=== PATIENT | female | born 1980 | race Caucasian/White ===

== ENCOUNTER 2019-02-20 21:35 | Emergency (ER) | payer MEDICAID ==
[~2019-02-20] VITALS: Ht 154.9 cm; Wt 75.0 kg
[2019-02-20] MEDS ORDERED: LORAZEPAM 1MG TABLET PO ONE (22:45)
[2019-02-20 23:09] LABS: BASOPHILS % 0.6 % (0.0-2.0); HEMATOCRIT. 38.4 % (36.0-48.0); HEMOGLOBIN. 12.6 g/dL (12.0-16.0); LYMPHOCYTES % 22.1 % (20.0-50.0); MEAN CORPUSCULAR VOLUME 85.7 fL (81.0-99.0); MEAN PLATELET VOLUME 7.8 fl (7.4-10.4); MONOCYTES % 5.9 % (2.0-8.0); NEUTROPHILS % 69.4 % (40.0-76.0); PLATELET 425 x1000/uL (130-400); RED BLOOD CELL COUNT 4.48 mill/uL (4.2-5.4); RED CELL DISTRIBUTION WIDTH 16.4 % (11.6-14.6)
[2019-02-20 23:14] LABS: CHLORIDE 107 mEq/L (98-107)
[2019-02-20 23:18] LABS: ETHANOL BLOOD < 10 mg/dL
[2019-02-21] MEDS ORDERED: DIPHENHYDRAMINE 50MG/ML VIAL IM ONE
[2019-02-21] MEDS ORDERED: LORAZEPAM 2MG/ML CPJ IM ONE
[2019-02-21 00:47] LABS: HCG SCREEN NEGATIVE
[2019-02-21] MEDS ORDERED: HALOPERIDOL LACTATE 5MG/ML VIAL IM ONE (01:00)
[2019-02-21] MEDS ORDERED: HALOPERIDOL 5MG TABLET PO ONE (01:00)
[2019-02-21 02:10] LABS: CLARITY URINE CLOUDY (CLEAR); COLOR URINE YELLOW (YELLOW); KETONES URINE NEGATIVE (NEGATIVE); LEUKOCYTE ESTERASE URINE NEGATIVE (NEGATIVE); NITRITE URINE NEGATIVE (NEGATIVE); OCCULT BLOOD URINE NEGATIVE (NEGATIVE); PH URINE 5.5 (4.5-8.0); PROTEIN URINE NEGATIVE (NEGATIVE); UROBILINOGEN URINE 0.2 E.U./dL (0.2-1.0)
[2019-02-21 02:40] LABS: *BARBITURATES SCREEN URINE NEGATIVE (NEGATIVE); *BENZODIAZEPINES SCREEN URINE NEGATIVE (NEGATIVE)
[2019-02-21 02:41] LABS: *COCAINE SCREEN URINE NEGATIVE (NEGATIVE); CANNABINOID URINE SCREEN NEGATIVE (NEGATIVE); METHADONE URINE SCREEN NEGATIVE (NEGATIVE); OPIATES URINE SCREEN NEGATIVE (NEGATIVE); PHENCYCLIDINE URINE SCREEN NEGATIVE (NEGATIVE)
[2019-02-21 03:08] LABS: *AMPHETAMINES SCREEN URINE PRESUMTIVE POSITIVE (NEGATIVE)
[2019-02-21] MEDS ORDERED: QUETIAPINE FUMARATE 50MG TABLET PO SCH (03:45)
[2019-02-21] MEDS ORDERED: OLANZAPINE 10 MG/VIAL IM ONE (08:30)
[2019-02-22 13:40] VITALS: BP 102/68
== END 2019-02-22 12:25 | disposition home or self-care (01) ==
LOC: ER 23:46
DX: F23 Brief psychotic disorder (principal); F32.9 Major depressive disorder, single episode, unspecified; Z75.1 Person awaiting admission to adequate facility elsewhere
CPT/HCPCS: 36415; 80048; 80305; 80307; 80320; 80329; 81003; 81025; 82962; 84703; 85025; 96372; 99284; J1200; J1630; J2060; J3490; Z7610; G0480